=== PATIENT | female | born 1990 | race American Indian/Alaskan Native ===

== ENCOUNTER 2018-05-21 06:44 | Day surgery (SDC) | payer MEDICAID ==
[2018-05-21] MEDS ORDERED: NACL 0.9% 1000 ML 1,000 ML IV SCH (09:00)
[2018-05-21] MEDS ORDERED: DIPRIVAN 10 MG/ML IV ONE (09:34)
[2018-05-21] MEDS ORDERED: VERSED ONE (09:34)
--- NOTE | 2018-05-21 09:49 | Anesthesia Day of Surgery ---
Anesthesia Day of Surgery - Day of Surgery Patient Examined: Yes Patient H&P Reviewed: Yes Patient is NPO: Yes Beta Blockers: No
--- NOTE | 2018-05-21 09:51 | Anesthesia Consultation ---
Anesthesia Consult and Med Hx Date of service: 05/21/18 - Airway Anesthetic Teeth Evaluation: Good ROM Head & Neck: Adequate Mental/Hyoid Distance: Adequate Mallampati Class: Class II Intubation Access Assessment: Probably Good - Pulmonary Exam CTA: Yes - Cardiac Exam Cardiac Exam: No Murmur - Pre-Operative Health Status ASA Pre-Surgery Classification: ASA3 Proposed Anesthetic Plan: MAC - Cardiovascular System Hx Hypertension: Yes - Hematic Hx Anemia: Yes
[2018-05-21 12:11] VITALS: BP 130/93
== END 2018-05-21 06:45 | disposition home or self-care (01) ==
LOC: GIO 06:44
PROVIDERS: ATTEND Specialist
DX: K21.0 Gastro-esophageal reflux disease with esophagitis (principal); K30 Functional dyspepsia; K44.9 Diaphragmatic hernia without obstruction or gangrene; I10 Essential (primary) hypertension; Z98.51 Tubal ligation status; Z98.84 Bariatric surgery status; Z98.890 Other specified postprocedural states; Z86.2 Personal history of diseases of the blood and blood-forming organs and certain disorders involving the immune mechanism
CPT/HCPCS: 43235; 81025; J2250; J2704; J7030

== ENCOUNTER 2018-05-28 07:34 | Inpatient (IN) | payer MEDICAID ==
--- NOTE | 2018-05-24 12:50 | Anesthesia Consultation ---
Anesthesia Consult and Med Hx - Airway Anesthetic Teeth Evaluation: Good ROM Head & Neck: Adequate Mental/Hyoid Distance: Adequate Mallampati Class: Class II Intubation Access Assessment: Good - Pulmonary Exam CTA: Yes - Pre-Operative Health Status ASA Pre-Surgery Classification: ASA3 Proposed Anesthetic Plan: General - Pulmonary Hx Smoking: No SOB: Yes (ON EXERTION) Hx Sleep Apnea: Yes - Cardiovascular System Hx Hypertension: Yes (2017- NON COMPLIANT WITH BP MED) - Central Nervous System Hx Psychiatric Problems: No - Hematic Hx Anemia: Yes (RESOLVED) - Other Systems Hx Alcohol Use: Yes (SOCIALLY) Hx Substance Use: No Hx Cancer: No Hx Obesity: Yes
[~2018-05-28 07:34] MED LIST: LACTATED RINGERS 1,000 ML IV SCH; NEURONTIN PO NR; TYLENOL PO NR
[2018-05-28 08:45] LABS: Bilirubin,Urine NEG (Negative); Blood,Urine NEG (Negative); Color,Urine Yellow (Yellow); Mucus,Urine FEW /HPF; Protein,Urine <15 mg/dL mg/dL (Negative)
[2018-05-28] MEDS ORDERED: SUBLIMAZE ONE (08:47)
[2018-05-28] MEDS ORDERED: DIPRIVAN 10 MG/ML IV ONE (08:47)
[2018-05-28] MEDS ORDERED: XYLOCAINE MPF 2% ONE (08:48)
[2018-05-28] MEDS ORDERED: VERSED ONE (08:48)
[2018-05-28] MEDS ORDERED: MARCAINE-EPI 0.5%-1:200,000 INFILTRATI ONE ×2 (08:57→09:52)
[2018-05-28] MEDS ORDERED: XYLOCAINE 1% 20 mL ONE (08:57)
[2018-05-28] MEDS ORDERED: LOVENOX SUB-Q NR (09:00)
[2018-05-28] MEDS ORDERED: TRANSDERM-SCOP TD SCH (09:00)
[2018-05-28] MEDS ORDERED: FLAGYL 500 MG/100 ML 500 MG/100 ML BAG IV NR (09:00)
[2018-05-28] MEDS ORDERED: ANCEF/STERILE WATER 2 GM/20 ML 2 GM/20 ML SYRINGE IV NR (09:00)
[2018-05-28] MEDS ORDERED: QUELICIN ONE (09:22)
[2018-05-28] MEDS ORDERED: XYLOCAINE 1% 20 mL INFILTRATI ONE (09:52)
[2018-05-28] MEDS ORDERED: NACL 0.9% IR ONE (09:53)
[2018-05-28] MEDS ORDERED: ROBINUL ONE (10:20)
[2018-05-28] MEDS ORDERED: DILAUDID ONE (10:22)
[2018-05-28] MEDS ORDERED: BLOXIVERZ ONE (10:22)
[2018-05-28] MEDS ORDERED: APRESOLINE IV PRN (10:51)
[2018-05-28] MEDS ORDERED: ZOFRAN IV PRN ×2 (10:51→11:26)
[2018-05-28] MEDS ORDERED: REGLAN IV PRN (10:51)
[2018-05-28] MEDS ORDERED: DILAUDID IV PRN (11:26)
[2018-05-28] MEDS ORDERED: LACTATED RINGERS 1,000 ML ONE (11:32)
--- NOTE | 2018-05-28 12:25 | Operative Report ---
PREOPERATIVE DIAGNOSIS: Morbid obesity. POSTOPERATIVE DIAGNOSIS: Morbid obesity. OPERATION: 1. Laparoscopic sleeve gastrectomy. 2. Laparoscopic hiatal hernia repair. ANESTHESIA: General endotracheal anesthesia. COMPLICATIONS: None. BLEEDING: Minimal. SPECIMENS: Gastric remnant. INDICATIONS: The patient is a 28-year-old female with a history of morbid obesity. She is here for a weight loss operation. She has undergone preoperative bariatric workup. The risks, complications, and alternatives had been explained to the patient and informed consent had been obtained. DESCRIPTION OF PROCEDURE: The patient was brought to the operating room, where she was placed in the supine position and underwent general endotracheal intubation. She received preoperative antibiotics and DVT prophylaxis. A time-out was called to ensure proper patient, indication, operation. Local analgesia was injected on the umbilical region and then a small stab incision was made at the base of the umbilicus with insertion of a Veress needle. Insufflation pressures were achieved to 18 mmHg and then the incision was widened and a 15 mm trocar was inserted. There was no intra-abdominal injury on view. Additional 5 mm ports were placed in the right lateral subxiphoid and left lateral quadrant. A liver retractor was placed and the patient was repositioned in steep reverse Trendelenburg. A hiatal dissection was then performed revealing at the left and right bora. She had a small hiatal hernia. The esophageal fat pad was removed and then I went down and divided the greater curvature of the stomach from the gastrocolic ligament with the LigaSure device. After the stomach was fully mobilized including antegrade down to 6 cm from the duodenum, Anesthesia placed a 40-Japanese bougie and then a sleeve gastrectomy was then performed utilizing several staple loads. Insufflation pressures were decreased and the staple line was cauterized after each viable load. After this, an anterior cruroplasty was then done with 0 Surgidac suture in a U-stitch fashion. The gastric remnant was removed from the umbilical port site and the fascia was closed with a #1 PDS in a [id number] fashion. After this, all the air was desufflated and the gastroscope was removed. Additional local was injected into all the port sites and the wounds were closed with 4-0 Monocryl. Sterile bandages were placed over top. The patient was extubated and left the operating room in stable condition. Counts were correct. [facility]# [id number] BANDAR/PHILIPPE
[2018-05-28] MEDS: MORPHINE IV PRN ×3 (12:43→23:13)
[2018-05-28] MEDS: MYLICON PO PRN (16:08)
[2018-05-28] MEDS: LACTATED RINGERS 1,000 ML IV SCH (17:42)
[2018-05-29] MEDS: LACTATED RINGERS 1,000 ML IV SCH (01:00)
[2018-05-29 05:46] VITALS: BP 132/82
[2018-05-29] MEDS: MYLICON PO PRN (06:29)
[2018-05-29] MEDS: NORCO PO PRN ×2 (06:30→10:53)
--- NOTE | 2018-05-29 07:32 | Discharge Summary ---
Providers - Providers Date of Admission: 05/28/18 10:51 Date of discharge: 05/29/18 Attending physician: RONNELL BARBOZA Primary care physician: [employer] [facility] Hospitalization Reason for admission: postop care Condition: Good Procedures: 05/28/18: Laparoscopic sleeve gastrectomy, HHR Hospital course: 28F admitted after her operation for routine postp care. She had no acute postop issues, ambulated, tolerated a CLD, and was dc home POD1. Disposition: DC-01 TO HOME OR SELFCARE Core Measure Documentation - Palliative Care Palliative Care/ Comfort Measures: Not Applicable - Core Measures Any of the following diagnoses?: none - VTE Discharge Requirements Deep Vein Thrombosis/Pulmonary Embolism Present on Admission: No - Acute MD Discharge Requirements Aspirin at discharge: No Reason for no aspirin on DC: Surgical contraindication - Heart Failure Discharge Requirements ORA/ARB for LVSD if EF <40%: Not Applicable - Stroke Discharge Requirements Statin for LDL = or >70 mg/dl on DC: Not Applicable Exam - Physical Exam Narrative exam: Gen: AAO, NAD Heart: RRR Lungs: CTAB Abd: Obese, soft, ND, minimally tender. Bandages cdi. EXT: No LE edema - Constitutional Vitals: Temp Pulse Resp BP Pulse Ox 99.1 F 82 20 132/82 98 05/29/18 04:46 05/29/18 04:46 05/29/18 04:46 05/29/18 04:46 05/29/18 04:46 Plan Diet: clear liquids Wound: keep clean and dry Special Instructions: no heavy lifting Additional Instructions: carline Barboza as scheduled Follow up with: PRIMARY CAREMD [Primary Care Provider] - 7 Days
[2018-05-29 08:15] LABS: Basophils % (Auto) 0.2 % (0.0-1.8); Hemoglobin 10.7 gm/dl (10.1-14.3); Lymphocytes # (Auto) 2.2 K/mm3 (1.2-5.4); Mean Corpuscular HGB Conc 33 % (30-34); Mean Corpuscular Volume 83 fl (79-97); Monocytes # (Auto) 0.5 K/mm3 (0.0-0.8); Monocytes % (Auto) 5.8 % (0.0-7.3); Platelet Count 267 K/mm3 (140-440); Red Blood Count 3.88 M/mm3 (3.65-5.03); Red Cell Distribution Width 13.8 % (13.2-15.2)
[2018-05-29 08:38] LABS: Alanine Aminotransferase 11 units/L (7-56); BUN/Creatinine Ratio 10; Blood Urea Nitrogen 8 mg/dL (7-17); Calcium 9.2 mg/dL (8.4-10.2); Hemolysis Index 0
[2018-05-29] MEDS ORDERED: LOVENOX SUB-Q SCH (10:00)
== END 2018-05-29 13:00 | disposition home or self-care (01) | DRG 621 ==
LOC: OR 07:34 → 3B-SURG 10:51
PROVIDERS: ADMIT Specialist; ATTEND Specialist
PROC: 0DB64Z3 Excision of Stomach, Percutaneous Endoscopic Approach, Vertical (ICD-10-PCS; principal; 2018-05-28)
PROC: 0BQT4ZZ Repair Diaphragm, Percutaneous Endoscopic Approach (ICD-10-PCS; 2018-05-28)
DX: E66.01 Morbid (severe) obesity due to excess calories (principal); Z68.41 Body mass index [BMI] 40.0-44.9, adult; K21.9 Gastro-esophageal reflux disease without esophagitis; G43.909 Migraine, unspecified, not intractable, without status migrainosus; K30 Functional dyspepsia; G47.30 Sleep apnea, unspecified; Z83.3 Family history of diabetes mellitus
CPT/HCPCS: 36415; 80053; 81001; 81025; 85025; 88307; G0378; J0330; J0690; J1170; J1650; J2250; J2270; J2405; J2704; J2710; J2765; J3010; J7120